=== PATIENT | male | born 1985 | race African-American/Black ===

== ENCOUNTER 2022-01-24 23:33 | Emergency (ER) | payer BC ==
[~2022-01-24] VITALS: Ht 170.2 cm; Wt 75.3 kg
--- NOTE | 2022-01-24 23:50 | NUR ---
RECEIVED IN ED BED 4B WITH REPORT OF RUQ PAIN ONSET SINCE 1999. DENIES N/V AND FEVER. POSITION FOR COMFORT AND MAP INSERTED INTO LEFT AC #18 G AND OBTAIN RAINBOW TUBES FOR LAB. URINE COLLECTED FOR UA. SEEN BY AND AWAITING CT SCAN OF ABD.
[2022-01-25] MEDS ORDERED: BUPR150T5 PO (00:05)
[2022-01-25] MEDS ORDERED: IV NORMAL SALINE 1000 ML BAG IV ONE (00:30)
[2022-01-25 00:37] LABS: HEMATOCRIT 43.9 % (36.7-47.1); MEAN CORPUSCULAR HEMOGLOBIN 30.7 uug (23.8-33.4); MEAN CORPUSCULAR VOLUME 89.9 fL (73.0-96.2); PLATELET COUNT (AUTO) 306 K/uL (152-348)
[2022-01-25 00:38] LABS: *BILIRUBIN,URIN NEGATIVE (NEGATIVE); *BLOOD, URINE 2+ (NEGATIVE); *CLARITY,URINE CLEAR (CLEAR); *COLOR,URINE YELLOW (YELLOW); *KETONES,URINE NEGATIVE (NEGATIVE); *UROBILINOGEN,URINE 0.2 E.U./dl (NORMAL); LEUKOCYTE ESTERASE ,URINE NEGATIVE (NEGATIVE); NITRITE, URINE NEGATIVE (NEGATIVE); UGLUCOSE NEGATIVE (NEGATIVE)
[2022-01-25 00:47] LABS: BACTERIA,URINE NONE SEEN /HPF (NONE SEEN); CREATININE 1.3 mg/dL (0.6-1.3); POTASSIUM 3.5 mmol/L (3.5-5.1); SQUAMOUS EPITHELIAL CELL,UR FEW /HPF (NONE SEEN); WBC,URINE NONE SEEN /HPF (0-3)
[2022-01-25 00:53] LABS: BILIRUBIN,DIRECT 0.1 mg/dL (0.0-0.2); BILIRUBIN,TOTAL 0.5 mg/dL (0.2-1.0); TOTAL PROTEIN, SERUM 8.6 g/dL (6.4-8.2)
--- NOTE | 2022-01-25 01:29 | NUR ---
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 LAB RESULTS REVIEWED AND WBC ELEVATED 12.6, URINE POSITIVE FOR PROTEIN AND BLOOD AND ELEVATED LIVER ENZYMES.
--- NOTE | 2022-01-25 02:32 | NUR ---
NOTIFY DR. EDWARDS PATIENT C/O PAIN IN LEFT LOWER QUAD
--- NOTE | 2022-01-25 03:49 | NUR ---
RE-EVAL BY DR. EDWARDS AND PATIENT IS BEING DISCHARGE NICOLE WITH ORAL ABT.ANALGESIC NOT GIVEN IN ED PATIENT IS RECOVERING FROM NARCOTICS.
[2022-01-25] MEDS ORDERED: OXYC-128 PO (03:52)
[2022-01-25] MEDS ORDERED: SULF1TAB48 PO (03:52)
[2022-01-25] MEDS ORDERED: OXYCODONE/APAP 5-325 MG TABLET PO ONE (04:00)
[2022-01-25] MEDS ORDERED: SULFAMETH/TRIMETH 800/160 MG TABLET PO ONE (04:00)
[2022-01-25] MEDS ORDERED: OXYCODONE/APAP 5-325 MG TABLET ONE (04:10)
[2022-01-25] MEDS ORDERED: SULFAMETH/TRIMETH 800/160 MG TABLET ONE (04:10)
[2022-01-25 04:30] VITALS: BP 111/61
--- NOTE | 2022-01-25 04:30 | NUR ---
DISCUSSED AND GIVE PATIENT D/C INSTRUCTIONS, RX, AND TO F/U WITH PCPFOLLOW AND PATIENT VERBALIZED UNDERSTANDING. VSS. MEDICATED WITH PERCOCET 5/325 MG AND BACTRIUM DS. LEFT HOSP WITHOUT DISTRESS OR ALLERGIC REACTION FROM BACTRIUM. MAP DISCONT WITH CATH INTACT.
== END 2022-01-25 04:38 | disposition home or self-care (01) ==
LOC: ER 23:56
DX: I88.0 Nonspecific mesenteric lymphadenitis (principal); R74.01 Elevation of levels of liver transaminase levels; Z87.891 Personal history of nicotine dependence; R03.0 Elevated blood-pressure reading, without diagnosis of hypertension; D72.829 Elevated white blood cell count, unspecified
CPT/HCPCS: 99284; 74176; 80076; 80048; 81001; 85025; 36415; J7040